=== PATIENT | male | born 1950 | race Caucasian/White ===

== ENCOUNTER 2017-06-14 21:52 | Emergency (ER) | payer MEDICARE, BC ==
--- NOTE | 2017-06-15 23:42 | ER ---
ADMIT: 06/14/2017 RM/LOC: ER [facility] MR#: [id number] [address] [id number] KOKIDAVIDAngel TRINITY Montes [address] [place] [address] Emergency Room Report SEX: M AGE: 66 : 1950 DATE: 06/14/2017 TIME: 2152 hours. Please refer to my T-sheet for complete H and P. HISTORY OF PRESENT ILLNESS: Briefly, the patient is a 66-year-old, who comes in. He has had a rotator cuff surgery on his right shoulder on May 22 of this year. He had been doing pretty well and from couple days, he noticed some swelling in his lower arm elbow. He is not having severe pain. No fevers. No chills. No recent trauma. PHYSICAL EXAMINATION: VITAL SIGNS: Here are stable, his saturations are 98%, his temperature is 98.5. GENERAL: He is in no acute distress. HEENT: Grossly normal. LUNGS: Clear. HEART: Regular. EXTREMITIES: Reveal a postop right shoulder with well-healed incisions. There is no erythema or redness. No drainage. He does have palpable cords on his elbow on the medial aspect that extends up, the ones I am palpating appear to be superficial. He is neurovascularly intact distally. EMERGENCY DEPARTMENT COURSE: We did an ultrasound of his right upper extremity that revealed superficial thrombophlebitis and more deep subclavian thrombophlebitis. At this point, I discussed with the patient options, he elected to use Xarelto and go home. I talked to Dr. Bullock, who is on-call for Dr. Moreland, they will follow the patient up. I advised that he quit smoking. ASSESSMENT: 1. Right upper extremity deep vein thrombosis. 2. Nicotine abuse. 3. Status post rotator cuff surgery of his right shoulder within the last 3 weeks. PLAN: Elevate, stop smoking, Xarelto, return if worse, and follow up with Dr. Moreland this week to recheck and let Dr. Levin know. Jeb Lu MD/ magalie JOB #: [id number] CC: Rich Moreno MD, Attending Physician Cb Moreland MD, Family Physician
== END 2017-06-14 23:50 | disposition home or self-care (01) ==
LOC: ER 21:52
DX: I82.621 Acute embolism and thrombosis of deep veins of right upper extremity (principal); F17.210 Nicotine dependence, cigarettes, uncomplicated